=== PATIENT | female | born 1975 | race Two or more races ===

== ENCOUNTER 2023-08-15 01:21 | Emergency (ER) | payer OTHER ==
[~2023-08-15] VITALS: Ht 144.8 cm; Wt 49.9 kg
[2023-08-15] MEDS ORDERED: ENDOCET 5-3251 EACH PO (08:12)
[2023-08-15] MEDS ORDERED: ZANAFLEX4 MG PO (08:12)
== END 2023-08-15 08:23 ==
LOC: ER 01:22
DX: M54.89 Other dorsalgia (principal); Z88.0 Allergy status to penicillin